=== PATIENT | male | born 1980 | race African-American/Black ===

== ENCOUNTER 2019-12-01 17:37 | Emergency (ER) | payer SELFPAY ==
[2019-12-01 18:24] LABS: #Basophils 0.1 thou/uL (0.0-0.2); #Eosinphils 0.2 thou/uL (0.0-0.7); #Monocytes 0.9 thou/uL (0.11-0.59); #Neutrophils 5.8 thou/uL (1.40-6.50); %Basophils 1.1 % (0.0-1.0); %Eosinophils 2.2 % (0.0-10.0); %Lymphocytes 29.7 % (21.0-51.0); %Neutrophils 58.1 % (42.0-75.0); Hemoglobin 13.6 g/dL (14.0-18.0); Mean Corpuscular Hemoglobin 29.1 pg (27.0-31.0); Mean Corpuscular Volume 88.2 fL (78.0-98.0); Mean Platelet Volume 6.6 fL (7.4-10.4); Platelet Count 305 thou/uL (130-400); RBC Distribution Width 12.2 % (11.5-14.5); Red Blood Cell (RBC) Count 4.69 mill/uL (4.70-6.10)
[2019-12-01 18:49] LABS: ALT (SGPT) 17 U/L (8-55); AST (SGOT) 15 U/L (5-34); Albumin 4.4 g/dL (3.5-5.0); Alkaline Phosphatase 97 U/L (40-110); Anion Gap 13 mmol/L (10-20); BUN (Urea Nitrogen) 16 mg/dL (8.9-20.6); Bilirubin, Total 0.4 mg/dL (0.2-1.2); Calc. Creatinine Clearance 0 mL/min (70-130); Calcium 8.8 mg/dL (7.8-10.44); Carbon Dioxide 23 mmol/L (22-29); Chloride 102 mmol/L (98-107); Estimated GFR-MDRD 69; Globulin 3.6 g/dL (2.4-3.5); Glucose 128 mg/dL (70-105); Potassium 3.7 mmol/L (3.5-5.1); Sodium 134 mmol/L (136-145)
[2019-12-01] MEDS ORDERED: Bupivacaine 0.5% 10 ML VIAL ONE (21:41)
[2019-12-01] MEDS ORDERED: Bupivacaine 0.25% 10 ML VIAL ONE (21:42)
--- NOTE | 2019-12-01 21:52 | CT ---
CT OF THE FACE 12/01/19 COMPARISON: None. HISTORY: Facial pain, dental pain, evaluate for abscess. TECHNIQUE: Axial CT imaging at 2.5 mm intervals through the face with IV contrast. Coronal and sagittal reformat jeannie imaging obtained. FINDINGS: The imaged brain parenchyma is grossly unremarkable. There is polypoid mucosal thickening within the alveolar recess of the right maxillary sinus. The visualized paranasal sinuses/mastoid air cells are otherwise unremarkable. No acute osseous abnormality is noted. The orbits and globes appear grossly unremarkable. The parapharyngeal fat and the retroantral fat is clear bilaterally. The submandibular glands and parotid glands appear unremarkable. There is a fluid collection associated with the lateral cortex of the mandible on the left anteriorly consistent with a gingival abscess. This is associated with a periapical abscess with mild lateral c ortical disruption involving the left mandibular first molar. No additional discrete periapical abscess is noted. The gingival based abscess on the left measures 1 .3 x 2.7 cm. No acute osseous abnormality. IMPRESSION: Periapical lucency involving the left mandibular first molar with an adjacent associated gingival abs cess abutting the lateral cortex measuring 2.7 x 1.3 cm. POS: [facility]
== END 2019-12-01 22:40 | disposition home or self-care (01) ==
LOC: ERS 17:37
DX: K04.7 Periapical abscess without sinus (principal); F17.210 Nicotine dependence, cigarettes, uncomplicated
CPT/HCPCS: 36415; 41800; 70487; 80053; 85025; 96372; J3490; S0020